=== PATIENT | female | born 1935 | race Caucasian/White ===

== ENCOUNTER 2017-08-16 05:12 | Inpatient (IN) | payer MEDICARE, OTHER ==
[~2017-08-16] VITALS: Ht 149.9 cm; Wt 59.1 kg
--- NOTE | ~2017-08-16 | EC ---
PATIENT:LEONIDAS CRUZ DATE OF SERVICE: 08/16/17 SEX: F MEDICAL RECORD: [id number] DATE OF : 35 LOCATION:D.M2 D.210 AGE OF PATIENT: 82 ADMISSION DATE: 08/16/17 REFERRING PHYSICIAN: INTERPRETING PHYSICIAN: KYLEE QUIÑONES MD ECHOCARDIOGRAM REPORT ECHO CHARGES 4 ECHO COMPLETE Date: 08/16 CLINICAL DIAGNOSIS: ECHOCARDIOGRAPHIC MEASUREMENTS (adult normal given) AC root (d.<3.7cm) 3.4 cm LV Septum d (<1.2 cm> 1.6 cm Valve Excursion 1.7 cm LV Septum (systole) 1.9 cm Left Atria (s.<4.0cm> 4.3 cm LVPW d(<1.2cm) 1.6 cm RV (d.<2.3cm) 2.7 cm LVPW (sytole) 2.2 cm LV diastole(<5.6CM) 4.3 cm MV E-F(>70mm/sec) cm LV systole 2.5 cm LVOT Diameter 1.7 cm MV exc.(>10mm) cm Est.ejection fraction (50-75%) % DOPPLER: LVIT cm/sec A cm/sec E 110 cm/sec LA cm/sec RVSP 52.0 mmHg LVOT 80.0 cm/sec AOP1/2T 664.0m/s Asc. Ao 142 cm/sec RVOT 60.0 cm/sec RA cm/sec PA 69.0 cm/sec AV Gradient Peak 8.1 mmHg AV Mean 3.9 mmHg AV Area 1.2 cm MV Gradient Peak 6.5 mmHg MV Mean 2.3 mmHg MV Area cm COMMENTS: Director Ehs: Bambi LAWOE Fire Control Technician G: 1 Dr. Quiñones TAPE# PACS Pericardial Effusion N DATE OF SERVICE: 08/16/2017 Echocardiogram FINDINGS: 1. Left ventricular chamber size is within normal limits. Left ventricular systolic function is mildly reduced, overall ejection fraction estimated at 40%. 2. Left atrium is enlarged at 4.3 cm. Right atrium and right ventricular chamber sizes are as well mildly dilated. 3. Valvular structures have normal structure and motion. ECHOCARDIOGRAM REPORT [id number] LEONIDAS CRUZ 4. Doppler interrogation reveals mild aortic insufficiency, moderate mitral regurgitation, moderate tricuspid regurgitation, no other valvular insufficiency or stenosis. Pulmonary systolic pressure is elevated estimated at 52 mmHg. 5. No evidence of pericardial effusion or left ventricular thrombus. TRANSINT:[id number] Voice Confirmation ID: [id number] DOCUMENT ID: [id number] KYLEE QUIÑONES MD at 1710 CC: [id number] DICTATION DATE: 08/17/17 0953 SSN/SSBN WEAPONS EQUIPMENT OPERATOR: 08/17/17 1104 ADM IN [place] [id number] [place] [address]
[2017-08-16] MEDS ORDERED: SODIUM BICARBO650 MG PO (05:15)
[2017-08-16] MEDS ORDERED: VITAMIN D31000 UNI2 PO (05:16)
[2017-08-16] MEDS ORDERED: LASIX40 MG PO (05:17)
[2017-08-16] MEDS ORDERED: ZYLOPRIM300 MG PO (05:17)
[2017-08-16] MEDS ORDERED: OMEPRAZOLE40 MG PO (05:17)
[2017-08-16] MEDS ORDERED: NEURONTIN 300300 MG PO (05:17)
[2017-08-16] MEDS ORDERED: K-DUR20 MEQ PO (05:18)
[2017-08-16] MEDS ORDERED: ALDACTONE50 MG PO (05:18)
[2017-08-16] MEDS ORDERED: BETAPACE 120 M120 MG PO (05:19)
[2017-08-16] MEDS ORDERED: SYNTHROID100 MCG PO (05:19)
[2017-08-16] MEDS ORDERED: COUMADIN5 MG PO (05:19)
[2017-08-16] MEDS ORDERED: COMBIVENT RESPIM4 GM INH (05:19)
[2017-08-16 05:47] LABS: BASOPHILS 0.5 % (0-2); HEMATOCRIT 32.8 % (36.0-48.0); HEMOGLOBIN 9.6 g/dL (12-16); IMMATURE GRANULOCYTES 0.7 % (0-5); LYMPHOCYTES 11.1 % (15-50); MCH 28.4 pg (26.0-34.0); MCHC 29.3 g/dL (31.0-37.0); MEAN PLATELET VOLUME 11.3 fL (7.4-10.4); MONOCYTES 12.5 % (2-11); NEUTROPHILS 69.2 % (40-80); PLATELET COUNT 244 10x3/uL (130-400); RBC 3.38 10x6/uL (4.00-5.40); RDW 16.9 % (11.5-14.5); WBC 8.6 10x3/uL (4.8-10.8)
[2017-08-16 05:51] LABS: ALBUMIN 2.5 g/dL (3.4-5.0); BILIRUBIN - TOTAL 0.43 mg/dL (0.2-1.3); CALCIUM 9.2 mg/dL (8.5-10.1); CARBON DIOXIDE 34.3 mmol/L (21.0-32.0); CREATININE - SERUM 1.8 mg/dL (0.6-1.3); POTASSIUM - SERUM 4.3 mmol/L (3.5-5.1); PROTEIN - SERUM 6.7 g/dL (6.4-8.2)
[2017-08-16 06:00] LABS: MAGNESIUM - SERUM 2.3 mg/dL (1.8-2.4); THYROID STIMULATING HORMONE 0.22 uIU/mL (0.36-3.74); TROPONIN-I 0.021 ng/mL (0.000-0.060)
[2017-08-16 06:38] VITALS: BP 130/56
[2017-08-16 07:09] LABS: APPEARANCE CLEAR (CLEAR); BACTERIA MODERATE /hpf (NONE SEEN); BILIRUBIN NEGATIVE (NEGATIVE); COLOR YELLOW (YELLOW); EPITHELIAL CELLS 0-5 /hpf (0-5); GLUCOSE NEGATIVE (NEGATIVE); HYALINE CAST OCC /lpf (NONE SEEN); KETONE NEGATIVE (NEGATIVE); MUCUS <1+ /lpf (NONE SEEN); NITRITE NEGATIVE (NEGATIVE); PROTEIN NEGATIVE (NEGATIVE); RED CELLS - URINE OCC /hpf (0-5); UROBILINOGEN NORMAL (NORMAL)
[2017-08-16 09:03] VITALS: BP 117/53
[2017-08-16] MEDS ORDERED: LIBRAX CAPSULE1 CAP PO (09:11)
[2017-08-16 09:59] VITALS: BP 132/80; BMI 26.3
[2017-08-16 12:39] VITALS: BP 102/54
[2017-08-16 16:08] LABS: APTT 134.3 SECONDS (22.8-39.4)
[2017-08-16 16:14] VITALS: BP 112/56
[2017-08-16 16:21] LABS: INR 8.11 (0.85-1.17); PROTIME 66.5 SECONDS (11.6-15.0)
[2017-08-16 20:00] VITALS: BP 102/51
[2017-08-17] VITALS: BP 101/46
[2017-08-17 06:17] VITALS: BP 112/56
[2017-08-17 07:00] VITALS: BP 141/57
[2017-08-17 11:00] VITALS: BP 111/52
[2017-08-17 11:28] LABS: HEMATOCRIT 28.3 % (36.0-48.0); HEMOGLOBIN 8.2 g/dL (12-16); MCH 28.8 pg (26.0-34.0); MEAN PLATELET VOLUME 11.3 fL (7.4-10.4); PLATELET COUNT 201 10x3/uL (130-400); RBC 2.85 10x6/uL (4.00-5.40); RDW 16.9 % (11.5-14.5)
[2017-08-17 11:35] LABS: MCV 99.3 fL (80.0-100.0)
[2017-08-17 11:39] LABS: ANION GAP 6.6 mmol/L (8-16); CALCIUM 8.7 mg/dL (8.5-10.1); CREATININE - SERUM 1.7 mg/dL (0.6-1.3); POTASSIUM - SERUM 4.6 mmol/L (3.5-5.1)
[2017-08-17 11:52] LABS: INR 2.59 (0.85-1.17); PROTIME 27.1 SECONDS (11.6-15.0)
[2017-08-17 12:04] LABS: BASOPHILS 1 % (0-2); EOSINOPHILS 3 % (0-7); LYMPHOCYTES 4 % (15-50); MONOCYTES 1 % (2-11); NEUTROPHILS 89 % (40-80); PLATELET ESTIMATE NORMAL
[2017-08-17 12:05] LABS: ROULEAUX OCC
[2017-08-17 15:04] VITALS: BP 97/45
[2017-08-17 21:53] VITALS: BP 112/46
[2017-08-18 00:49] VITALS: BP 101/48
[2017-08-18 05:06] LABS: BASOPHILS 0.6 % (0-2); EOSINOPHILS 5.1 % (0-7); HEMOGLOBIN 8.4 g/dL (12-16); IMMATURE GRANULOCYTES 1.1 % (0-5); LYMPHOCYTES 13.4 % (15-50); MCH 28.7 pg (26.0-34.0); MEAN PLATELET VOLUME 11.2 fL (7.4-10.4); MONOCYTES 10.8 % (2-11); PLATELET COUNT 226 10x3/uL (130-400); RBC 2.93 10x6/uL (4.00-5.40); WBC 7.2 10x3/uL (4.8-10.8)
[2017-08-18 05:17] VITALS: BP 111/48
[2017-08-18 05:22] LABS: ANION GAP 5.2 mmol/L (8-16); CALCIUM 8.7 mg/dL (8.5-10.1); CARBON DIOXIDE 36.2 mmol/L (21.0-32.0); CREATININE - SERUM 1.8 mg/dL (0.6-1.3); POTASSIUM - SERUM 4.4 mmol/L (3.5-5.1)
[2017-08-18 05:33] LABS: PROTIME 22.5 SECONDS (11.6-15.0)
[2017-08-18 05:38] LABS: INR 2.05 (0.85-1.17)
[2017-08-18 09:11] VITALS: BP 111/46
[2017-08-18 12:35] VITALS: BP 99/41
[2017-08-18 20:00] VITALS: BP 102/38
[2017-08-19] VITALS: BP 109/46
[2017-08-19 04:00] VITALS: BP 119/50
[2017-08-19 05:38] LABS: BASOPHILS 0.8 % (0-2); EOSINOPHILS 5.2 % (0-7); HEMOGLOBIN 8.3 g/dL (12-16); IMMATURE GRANULOCYTES 0.9 % (0-5); LYMPHOCYTES 9.9 % (15-50); MCH 28.6 pg (26.0-34.0); MCHC 29.6 g/dL (31.0-37.0); MEAN PLATELET VOLUME 11.2 fL (7.4-10.4); MONOCYTES 10.1 % (2-11); NEUTROPHILS 73.1 % (40-80); PLATELET COUNT 224 10x3/uL (130-400); WBC 7.6 10x3/uL (4.8-10.8)
[2017-08-19 05:42] LABS: MCV 96.6 fL (80.0-100.0)
[2017-08-19 06:14] LABS: ANION GAP 8.4 mmol/L (8-16); CALCIUM 8.8 mg/dL (8.5-10.1); CARBON DIOXIDE 32.4 mmol/L (21.0-32.0); CREATININE - SERUM 1.8 mg/dL (0.6-1.3); POTASSIUM - SERUM 4.8 mmol/L (3.5-5.1)
[2017-08-19 07:18] LABS: INR 1.54 (0.85-1.17)
[2017-08-19 08:06] VITALS: BP 116/49
[2017-08-19 11:44] VITALS: BP 123/54
[2017-08-19 14:56] VITALS: Ht 149.9 cm; Wt 59.1 kg
[2017-08-19 15:39] VITALS: BP 103/47
[2017-08-19 20:00] VITALS: BP 94/40
[2017-08-20] VITALS: BP 105/49
[2017-08-20 04:00] VITALS: BP 113/48
[2017-08-20 06:26] LABS: INR 1.33 (0.85-1.17)
[2017-08-20 06:27] LABS: BASOPHILS 0.7 % (0-2); EOSINOPHILS 4.6 % (0-7); HEMATOCRIT 29.4 % (36.0-48.0); HEMOGLOBIN 8.5 g/dL (12-16); IMMATURE GRANULOCYTES 0.7 % (0-5); LYMPHOCYTES 7.7 % (15-50); MCH 28.2 pg (26.0-34.0); MCHC 28.9 g/dL (31.0-37.0); MCV 97.7 fL (80.0-100.0); MEAN PLATELET VOLUME 11.3 fL (7.4-10.4); MONOCYTES 8.7 % (2-11); NEUTROPHILS 77.6 % (40-80); PLATELET COUNT 242 10x3/uL (130-400); RBC 3.01 10x6/uL (4.00-5.40); RDW 16.9 % (11.5-14.5); WBC 7.6 10x3/uL (4.8-10.8)
[2017-08-20 06:39] LABS: ANION GAP 7.7 mmol/L (8-16); CARBON DIOXIDE 36.3 mmol/L (21.0-32.0); CREATININE - SERUM 1.7 mg/dL (0.6-1.3)
[2017-08-20 08:15] VITALS: BP 117/39
[2017-08-20 11:46] VITALS: BP 112/41
[2017-08-20 15:55] VITALS: BP 100/42
[2017-08-20 20:00] VITALS: BP 122/53
[2017-08-21] VITALS: BP 103/48
[2017-08-21 04:00] VITALS: BP 116/53
[2017-08-21 06:10] LABS: ANION GAP 7.4 mmol/L (8-16); CALCIUM 9.1 mg/dL (8.5-10.1); CARBON DIOXIDE 34.9 mmol/L (21.0-32.0); CREATININE - SERUM 1.5 mg/dL (0.6-1.3); POTASSIUM - SERUM 4.3 mmol/L (3.5-5.1)
[2017-08-21 06:15] LABS: INR 1.26 (0.85-1.17); PROTIME 15.3 SECONDS (11.6-15.0)
[2017-08-21 06:19] LABS: BASOPHILS 0.9 % (0-2); EOSINOPHILS 5.9 % (0-7); HEMATOCRIT 29.2 % (36.0-48.0); HEMOGLOBIN 8.5 g/dL (12-16); IMMATURE GRANULOCYTES 0.6 % (0-5); MCH 28.6 pg (26.0-34.0); MCHC 29.1 g/dL (31.0-37.0); MCV 98.3 fL (80.0-100.0); MEAN PLATELET VOLUME 10.9 fL (7.4-10.4); MONOCYTES 11.1 % (2-11); NEUTROPHILS 72.5 % (40-80); PLATELET COUNT 214 10x3/uL (130-400); RBC 2.97 10x6/uL (4.00-5.40); WBC 7.7 10x3/uL (4.8-10.8)
[2017-08-21 08:52] VITALS: BP 112/52
[2017-08-21 11:35] VITALS: BP 113/48
[2017-08-21 15:49] VITALS: BP 106/45
[2017-08-21 21:42] VITALS: BP 119/54
[2017-08-22 01:22] VITALS: BP 107/53
[2017-08-22 05:37] VITALS: BP 111/54
[2017-08-22 05:43] LABS: BASOPHILS 0.7 % (0-2); EOSINOPHILS 6.9 % (0-7); HEMATOCRIT 29.2 % (36.0-48.0); HEMOGLOBIN 8.4 g/dL (12-16); IMMATURE GRANULOCYTES 0.6 % (0-5); LYMPHOCYTES 8.3 % (15-50); MCHC 28.8 g/dL (31.0-37.0); MCV 97.3 fL (80.0-100.0); MEAN PLATELET VOLUME 10.6 fL (7.4-10.4); MONOCYTES 9.7 % (2-11); NEUTROPHILS 73.8 % (40-80); PLATELET COUNT 236 10x3/uL (130-400); RDW 16.6 % (11.5-14.5); WBC 7.2 10x3/uL (4.8-10.8)
[2017-08-22 05:54] LABS: INR 1.36 (0.85-1.17); PROTIME 16.3 SECONDS (11.6-15.0)
[2017-08-22 05:57] LABS: ANION GAP 5.6 mmol/L (8-16); CARBON DIOXIDE 36.4 mmol/L (21.0-32.0); CREATININE - SERUM 1.6 mg/dL (0.6-1.3)
[2017-08-22 08:14] VITALS: BP 119/56
[2017-08-22 13:45] VITALS: BP 113/59
[2017-08-22 16:26] VITALS: BP 119/53
[2017-08-22 22:29] VITALS: BP 111/56
[2017-08-23] VITALS: BP 110/56
[2017-08-23 05:02] LABS: BASOPHILS 0.6 % (0-2); EOSINOPHILS 5.9 % (0-7); HEMATOCRIT 30.2 % (36.0-48.0); HEMOGLOBIN 8.7 g/dL (12-16); IMMATURE GRANULOCYTES 0.8 % (0-5); LYMPHOCYTES 10.5 % (15-50); MCH 27.6 pg (26.0-34.0); MCHC 28.8 g/dL (31.0-37.0); MCV 95.9 fL (80.0-100.0); MEAN PLATELET VOLUME 9.9 fL (7.4-10.4); MONOCYTES 8.6 % (2-11); NEUTROPHILS 73.6 % (40-80); PLATELET COUNT 208 10x3/uL (130-400); RBC 3.15 10x6/uL (4.00-5.40); RDW 16.5 % (11.5-14.5); WBC 7.1 10x3/uL (4.8-10.8)
[2017-08-23 05:18] LABS: ANION GAP 4.6 mmol/L (8-16); CALCIUM 8.6 mg/dL (8.5-10.1); CREATININE - SERUM 1.5 mg/dL (0.6-1.3); POTASSIUM - SERUM 3.6 mmol/L (3.5-5.1)
[2017-08-23 05:50] VITALS: BP 118/54
[2017-08-23 08:14] VITALS: BP 132/64
[2017-08-23 10:48] LABS: INR 1.59 (0.85-1.17); PROTIME 18.5 SECONDS (11.6-15.0)
[2017-08-23 16:13] VITALS: BP 121/59
[2017-08-23 16:19] VITALS: BP 107/58
[2017-08-23 20:00] VITALS: BP 105/47
[2017-08-24] VITALS: BP 123/60
[2017-08-24 04:00] VITALS: BP 136/54
[2017-08-24 05:26] LABS: BASOPHILS 0.8 % (0-2); EOSINOPHILS 5.3 % (0-7); HEMATOCRIT 32.2 % (36.0-48.0); HEMOGLOBIN 9.4 g/dL (12-16); IMMATURE GRANULOCYTES 1.1 % (0-5); LYMPHOCYTES 10.7 % (15-50); MCH 27.7 pg (26.0-34.0); MCHC 29.2 g/dL (31.0-37.0); MEAN PLATELET VOLUME 9.9 fL (7.4-10.4); MONOCYTES 7.1 % (2-11); PLATELET COUNT 239 10x3/uL (130-400); RBC 3.39 10x6/uL (4.00-5.40); RDW 16.4 % (11.5-14.5); WBC 7.6 10x3/uL (4.8-10.8)
[2017-08-24 05:38] LABS: ANION GAP 2.7 mmol/L (8-16); CALCIUM 9.1 mg/dL (8.5-10.1); CREATININE - SERUM 1.6 mg/dL (0.6-1.3); POTASSIUM - SERUM 3.8 mmol/L (3.5-5.1)
[2017-08-24 06:01] LABS: CARBON DIOXIDE 40.1 mmol/L (21.0-32.0)
[2017-08-24 06:33] LABS: INR 2.4 (0.85-1.17); PROTIME 25.5 SECONDS (11.6-15.0)
[2017-08-24 07:44] VITALS: BP 132/68
[2017-08-24 10:40] VITALS: BP 130/77
[2017-08-24] MEDS ORDERED: ZYVOX PREMIX600 MG IV (15:58)
[2017-08-24] MEDS ORDERED: LOVENOX30 MG/0.3 SC (15:58)
[2017-08-24] MEDS ORDERED: COUMADIN4 MG PO (15:58)
[2017-08-24] MEDS ORDERED: FLORAJEN3 CAPS460 MG PO (15:59)
[2017-08-24 16:07] VITALS: BP 124/71
== END 2017-08-24 18:34 | DRG 292 ==
LOC: D.ER 05:12 → EDBD 05:12 → D.EDHOLD 06:28 → D.M2 06:28
PROVIDERS: Family Medicine; Internal Medicine Nephrology
DX: I11.0 Hypertensive heart disease with heart failure (principal); D68.9 Coagulation defect, unspecified; N39.0 Urinary tract infection, site not specified; N17.9 Acute kidney failure, unspecified; I50.23 Acute on chronic systolic (congestive) heart failure; T45.515A Adverse effect of anticoagulants, initial encounter; I48.91 Unspecified atrial fibrillation; K58.9 Irritable bowel syndrome, unspecified; E03.9 Hypothyroidism, unspecified; F03.90 Unspecified dementia, unspecified severity, without behavioral disturbance, psychotic disturbance, mood disturbance, and anxiety; F32.9 Major depressive disorder, single episode, unspecified; J32.9 Chronic sinusitis, unspecified; B95.2 Enterococcus as the cause of diseases classified elsewhere; Z16.21 Resistance to vancomycin

== ENCOUNTER 2017-08-24 18:52 | Inpatient (IN) | payer MEDICARE, OTHER ==
[~2017-08-24] VITALS: Ht 149.9 cm; Wt 59.0 kg
--- NOTE | ~2017-08-24 | RHP ---
PATIENT: LEONIDAS CRUZ MEDICAL RECORD: [id number] ACCOUNT: [id number] LOCATION:[facility] : 35 ADMISSION DATE: 08/24/17 REHABILITATION HISTORY AND PHYSICAL EXAMINATION POST ADMISSION PHYSICIAN EXAMINATION DATE OF ADMISSION: 08/24/2017. ADMITTING DIAGNOSES: Evhjg-bp-kxsaoye CHF. HISTORY OF PRESENT ILLNESS: The patient is an 82-year-old female patient admitted with jeiqz-si-xykgfsz CHF. Her ejection fraction is 40%. She has got a history of hypertension, CHF, AFib, status post pacemaker placement, irritable bowel syndrome, hypothyroidism, and dementia, presented to the ER on 08/16/2017 with complaints of having a fall after getting out of bed. She is a poor historian regarding her past medical history; however, she told the ER physician that she was getting out of bed and just fell. She was not dizzy. She did not pass out. Her son and zjdiqikn-wn-qbh could not pick her up, so they called an ambulance. She did not hit her head. She was taking Coumadin daily. [facility] for [facility] evaluation. CT of her head showed atrophy, some chronic small vessel ischemic changes and periventricular white matter changes, chronic sinusitis, opacification of the mastoid air cells on the left as well as the left ear, which could be related to some acute otomastoiditis. Clinical correlation was recommended. Chest x-ray showed some prominence of some interstitial lung markings and some cardiomegaly. Comorbid diagnosis to continue assessment and treatment while in the rehab unit include dsulk-gb-bbarrhe systolic heart failure, coagulopathy, Coumadin toxicity, acute kidney injury, normocytic anemia, UTI, hypertension, overcorrection with syncope and collapse, atrial fibrillation, status post pacemaker placement, irritable bowel syndrome, hypothyroidism, and dementia. She is currently on 3 liters of O2. This was new. She was not on O2 at home. 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 She has been started on antibiotic therapy for this. Prior to this illness she was living with her son and qoxaywzv-gx-bpo after being discharged from the long-term facility in June, status post pacemaker placement. She does own a rolling walker and wheelchair, but states she does not require any assistive devices usually for ambulation. She is currently total assist with ambulation using a rolling walker to go 20 feet and is moderate assist with ADLs. She required intensive therapy with PT and OT and speech therapy to get back to her prior level of functioning or better if possible. COMORBIDITIES: In this patient include knpvk-gy-knsfsce CHF, atrial fibrillation, status post pacemaker, pneumonia, renal insufficiency, acute kidney injury, anemia, UTI with VRE, irritable bowel syndrome, hypothyroidism, dementia, hypertension, tobacco use. PAST MEDICAL HISTORY: Significant for hearing problems. She has got a history of thyroid problems, hypertension, CHF, pacemaker placement, pneumonia, breast cancer, diarrhea, irritable bowel syndrome, dementia, and tobacco use. PAST SURGICAL HISTORY: Includes knee surgery, back surgery, cataracts, hysterectomy, pacemaker placement, right knee replacement, kyphoplasty, and partial lumpectomy. ALLERGIES: PENICILLIN and PREDNISONE. HISTORY AND PHYSICAL [id number] LEONIADS CRUZ CURRENT MEDICATIONS: Include vitamin D daily. She is on Zyvox 600 mg b.i.d. for the VRE, Tylenol 650 q.4 hours p.r.n., Coumadin daily, Calmoseptine as needed, Combivent MDI 1 puff q.i.d. She is on electrolyte protocol at this time. She is on Protonix 40 mg daily, Synthroid 100 mcg daily, Floranex 460 mg daily, furosemide 40 mg daily, enoxaparin 30 mg subq daily, Zyloprim 300 mg daily, sotalol 120 mg b.i.d., sodium bicarbonate 650 b.i.d., Neurontin 300 mg q.h.s., she is on Librax 1 cap q.h.s., and polyethylene glycol 17 g in 8 ounces of water daily. HABITS: Does have a history of tobacco use. FAMILY HISTORY: Noncontributory. SOCIAL HISTORY: The patient hopes to return back home and get back to her prior level of functioning with her family. REVIEW OF SYSTEMS: GENERAL: Does complain of weakness and fatigue. HEENT: Denies cold, cough, or congestion. CARDIOVASCULAR: Denies chest pain. PHYSICAL EXAMINATION: VITAL SIGNS: Stable, afebrile. GENERAL: An elderly female, in no acute distress, alert upon exam. HEENT: Normocephalic, atraumatic. Mucosa moist. NECK: Supple. No lymphadenopathy. LUNGS: Clear at this time. HEART: Irregular rate and rhythm. ABDOMEN: Benign. EXTREMITIES: No clubbing, cyanosis, or edema. Does have multiple bruises noted. NEUROLOGIC: She is slow to mentate and noted to have weakness. LABORATORY DATA: White count was 7.3, H&H 8.9 and 30.8, and platelet count was noted to be 241. Her admit sodium is 137, potassium 3.6, BUN and creatinine of 23 and 1.6, and blood sugar is noted to be 71. ASSESSMENT: This is an 82-year-old female patient admitted to the rehab with a working diagnosis of amfzo-iw-aoorgtf CHF. The patient has potential to make improvement. We instituted the following multidisciplinary therapies including, but not limited to physical, occupational, respiratory, speech, nutritional services, prosthetics and orthotics. Given her complex medical condition and risk of more complications, rehabilitation services cannot be provided at a low level of care such as a skilled nurse facility. 1. Admit to [facility] rehab for intensive inpatient therapy to include the following disciplines: A. Physical therapy to improve gait, all transfer skills and bed mobility to a modified independent level. B. Occupational therapy to improve activities of daily living to a modified independent level. C. Case management to assist with discharge planning and placement options. D. Nutrition to assist with nutritional needs. E. Rehabilitation nursing to assist in monitoring the patient's underlying medical condition and assist with any type of bowel or bladder management. HISTORY AND PHYSICAL [id number] LEONIDAS CRUZ 2. The patient's current medication and medical care will be continued. 3. The patient will be placed on standard fall precautions. 4. The patient's estimated length of stay is approximately 7-10 days. 5. Discuss this patient during care team staff meeting this week. TRANSINT:[id number] Voice Confirmation ID: [id number] DOCUMENT ID: [id number] ALISE notes whether there has been none or any medical/functional change since admission: - No change since prescreen. ALISE attests patient continues to be appropriate for IRF: - Continues to be appropriate. KAITLYNN FALCON MD at 0830 CC: [id number] DICTATION DATE: 08/27/17 0900 PREPARED FOODS ASSOCIATE: 08/27/17 1058 ADM IN [place] [id number]
[~2017-08-24 18:52] MED LIST: ALDACTONE50 MG PO; BETAPACE 120 M120 MG PO; COMBIVENT RESPIM4 GM INH; COUMADIN4 MG PO; COUMADIN5 MG PO; FLORAJEN3 CAPS460 MG PO; K-DUR20 MEQ PO; LASIX40 MG PO; LIBRAX CAPSULE1 CAP PO; LOVENOX30 MG/0.3 SC; NEURONTIN 300300 MG PO; OMEPRAZOLE40 MG PO; SODIUM BICARBO650 MG PO; SYNTHROID100 MCG PO; VITAMIN D31000 UNI2 PO; ZYLOPRIM300 MG PO; ZYVOX PREMIX600 MG IV
[2017-08-24 22:08] VITALS: BP 124/59; BMI 26.3
[2017-08-25 07:15] LABS: BASOPHILS 0.5 % (0-2); EOSINOPHILS 6.2 % (0-7); HEMATOCRIT 30.8 % (36.0-48.0); HEMOGLOBIN 8.9 g/dL (12-16); IMMATURE GRANULOCYTES 0.5 % (0-5); MCH 27.8 pg (26.0-34.0); MCHC 28.9 g/dL (31.0-37.0); MCV 96.3 fL (80.0-100.0); MEAN PLATELET VOLUME 10.1 fL (7.4-10.4); MONOCYTES 8.2 % (2-11); NEUTROPHILS 70.6 % (40-80); PLATELET COUNT 241 10x3/uL (130-400); RDW 16.5 % (11.5-14.5); WBC 7.3 10x3/uL (4.8-10.8)
[2017-08-25 07:40] LABS: ANION GAP 4.3 mmol/L (8-16); CALCIUM 8.7 mg/dL (8.5-10.1); CARBON DIOXIDE 39.3 mmol/L (21.0-32.0); CREATININE - SERUM 1.6 mg/dL (0.6-1.3); POTASSIUM - SERUM 3.6 mmol/L (3.5-5.1)
[2017-08-25 08:00] VITALS: BP 92/39
[2017-08-25 08:17] LABS: INR 3.11 (0.85-1.17); PROTIME 31.3 SECONDS (11.6-15.0)
[2017-08-25 14:07] VITALS: Ht 149.9 cm; Wt 59.0 kg
[2017-08-25 21:30] VITALS: BP 106/47
[2017-08-26 13:27] VITALS: BP 106/30
[2017-08-26 16:03] LABS: INR 4.62 (0.85-1.17); PROTIME 42.7 SECONDS (11.6-15.0)
[2017-08-26 19:00] VITALS: BP 92/42
[2017-08-27 07:38] LABS: BASOPHILS 0.4 % (0-2); HEMATOCRIT 29.6 % (36.0-48.0); HEMOGLOBIN 8.5 g/dL (12-16); IMMATURE GRANULOCYTES 0.2 % (0-5); LYMPHOCYTES 11.7 % (15-50); MCH 27.2 pg (26.0-34.0); MCHC 28.7 g/dL (31.0-37.0); MCV 94.9 fL (80.0-100.0); MEAN PLATELET VOLUME 9.9 fL (7.4-10.4); MONOCYTES 7.8 % (2-11); NEUTROPHILS 74.9 % (40-80); RBC 3.12 10x6/uL (4.00-5.40); RDW 16.8 % (11.5-14.5); WBC 8.4 10x3/uL (4.8-10.8)
[2017-08-27 08:03] VITALS: BP 105/46
[2017-08-27 08:10] LABS: PROTIME 46.7 SECONDS (11.6-15.0)
[2017-08-27 08:25] LABS: PLATELET COUNT 185 10x3/uL (130-400)
[2017-08-27 08:33] LABS: INR 5.18 (0.85-1.17)
[2017-08-27 10:27] LABS: ANION GAP 1.3 mmol/L (8-16); CALCIUM 8.3 mg/dL (8.5-10.1); CREATININE - SERUM 1.7 mg/dL (0.6-1.3); POTASSIUM - SERUM 4.2 mmol/L (3.5-5.1)
[2017-08-27 10:54] LABS: CARBON DIOXIDE 41.9 mmol/L (21.0-32.0)
[2017-08-27 19:00] VITALS: BP 86/41
[2017-08-28 07:45] VITALS: BP 111/54
[2017-08-28 07:57] LABS: PROTIME 46.1 SECONDS (11.6-15.0)
[2017-08-28 08:00] LABS: INR 5.09 (0.85-1.17)
[2017-08-28 20:30] VITALS: BP 104/52
[2017-08-29 07:36] LABS: INR 5.86 (0.85-1.17); PROTIME 51.5 SECONDS (11.6-15.0)
[2017-08-29 09:09] VITALS: BP 103/58
[2017-08-29 20:30] VITALS: BP 94/45
[2017-08-30 06:30] LABS: BASOPHILS 0.4 % (0-2); EOSINOPHILS 6.1 % (0-7); HEMATOCRIT 29.4 % (36.0-48.0); HEMOGLOBIN 8.7 g/dL (12-16); IMMATURE GRANULOCYTES 0.2 % (0-5); MCH 27.7 pg (26.0-34.0); MCHC 29.6 g/dL (31.0-37.0); MCV 93.6 fL (80.0-100.0); MEAN PLATELET VOLUME 10.9 fL (7.4-10.4); MONOCYTES 1.8 % (2-11); NEUTROPHILS 83.5 % (40-80); PLATELET COUNT 186 10x3/uL (130-400); RBC 3.14 10x6/uL (4.00-5.40); RDW 17.2 % (11.5-14.5); WBC 8.2 10x3/uL (4.8-10.8)
[2017-08-30 06:58] LABS: ANION GAP 6.8 mmol/L (8-16); CALCIUM 8.4 mg/dL (8.5-10.1); CARBON DIOXIDE 37.7 mmol/L (21.0-32.0); CREATININE - SERUM 1.6 mg/dL (0.6-1.3); POTASSIUM - SERUM 4.5 mmol/L (3.5-5.1)
[2017-08-30 07:03] LABS: INR 5.49 (0.85-1.17)
[2017-08-30 08:00] VITALS: BP 113/53
[2017-08-30 19:00] VITALS: BP 91/43
[2017-08-31 07:17] LABS: PROTIME 49.1 SECONDS (11.6-15.0)
[2017-08-31 07:20] LABS: INR 5.51 (0.85-1.17)
[2017-08-31 08:42] VITALS: BP 91/48
[2017-08-31 19:00] VITALS: BP 95/42
[2017-09-01 08:00] VITALS: BP 95/42
[2017-09-01 08:06] LABS: INR 4.56 (0.85-1.17); PROTIME 42.3 SECONDS (11.6-15.0)
[2017-09-01 19:00] VITALS: BP 84/37
[2017-09-02 06:12] LABS: INR 4.87 (0.85-1.17); PROTIME 44.5 SECONDS (11.6-15.0)
[2017-09-02 08:00] VITALS: BP 86/38
[2017-09-02 19:00] VITALS: BP 95/40
[2017-09-03 07:32] LABS: PROTIME 49.7 SECONDS (11.6-15.0)
[2017-09-03 07:34] LABS: INR 5.6 (0.85-1.17)
[2017-09-03 08:00] VITALS: BP 95/40
[2017-09-03 19:54] VITALS: BP 98/42
[2017-09-04 07:54] VITALS: BP 105/41
[2017-09-04 10:29] LABS: BASOPHILS 0.2 % (0-2); EOSINOPHILS 3.2 % (0-7); HEMATOCRIT 29.3 % (36.0-48.0); HEMOGLOBIN 8.6 g/dL (12-16); IMMATURE GRANULOCYTES 0.1 % (0-5); MCH 27.5 pg (26.0-34.0); MCHC 29.4 g/dL (31.0-37.0); MCV 93.6 fL (80.0-100.0); MEAN PLATELET VOLUME 10.9 fL (7.4-10.4); MONOCYTES 0.7 % (2-11); NEUTROPHILS 88.8 % (40-80); PLATELET COUNT 114 10x3/uL (130-400); RBC 3.13 10x6/uL (4.00-5.40); RDW 17.2 % (11.5-14.5); WBC 8.2 10x3/uL (4.8-10.8)
[2017-09-04 10:32] LABS: INR 4.77 (0.85-1.17); PROTIME 43.8 SECONDS (11.6-15.0)
[2017-09-04 10:53] LABS: ANION GAP 6.2 mmol/L (8-16); CALCIUM 8.8 mg/dL (8.5-10.1); CARBON DIOXIDE 37.8 mmol/L (21.0-32.0); CREATININE - SERUM 2.6 mg/dL (0.6-1.3)
[2017-09-04 20:03] VITALS: BP 93/45
[2017-09-05 10:54] LABS: INR 2.18 (0.85-1.17); PROTIME 23.6 SECONDS (11.6-15.0)
[2017-09-05 13:23] VITALS: BP 102/48
[2017-09-05 20:55] VITALS: BP 98/44
[2017-09-06 08:00] VITALS: BP 106/50
[2017-09-06 19:00] VITALS: BP 95/43
[2017-09-07 08:00] VITALS: BP 103/47
[2017-09-07] MEDS ORDERED: COUMADIN1 MG PO (08:28)
[2017-09-07] MEDS ORDERED: K-DUR20 MEQ PO (08:29)
== END 2017-09-07 14:42 | disposition home health service (06) | DRG 291 ==
LOC: D.REHAB 18:52
PROVIDERS: Emergency Medicine
DX: I11.0 Hypertensive heart disease with heart failure (principal); J18.9 Pneumonia, unspecified organism; I50.23 Acute on chronic systolic (congestive) heart failure; N17.9 Acute kidney failure, unspecified; N39.0 Urinary tract infection, site not specified; Z66 Do not resuscitate; I48.91 Unspecified atrial fibrillation; Z95.0 Presence of cardiac pacemaker; D64.9 Anemia, unspecified; K58.9 Irritable bowel syndrome, unspecified; E03.9 Hypothyroidism, unspecified; F03.90 Unspecified dementia, unspecified severity, without behavioral disturbance, psychotic disturbance, mood disturbance, and anxiety; F17.200 Nicotine dependence, unspecified, uncomplicated